=== PATIENT | female | born 1970 | race Caucasian/White ===

== ENCOUNTER 2018-05-27 08:35 | Emergency (ER) | payer OTHER ==
[~2018-05-27] VITALS: Ht 172.7 cm; Wt 110.7 kg
[~2018-05-27 08:35] MED LIST: AUGMENTIN 500-1 EACH PO; DIABETA 5MG TABL5 MG PO; IBUPROFEN 800800 M1 PO; LISINOPRIL5 MG PO; LORTAB 5-500 T1 EAC1 PO; METFORMIN HCL500 MG PO; ULTRAM 50MG TAB50 MG PO
[2018-05-27] MEDS ORDERED: CIPRODEX OTIC7.5 ML OTIC (09:27)
[2018-05-27] MEDS ORDERED: AUGMENTIN 875-1 EACH PO (09:27)
[2018-05-27 09:45] VITALS: BP 128/87
== END 2018-05-27 09:46 | disposition home or self-care (01) ==
LOC: M.ERS 08:35
DX: H60.91 Unspecified otitis externa, right ear (principal); H66.91 Otitis media, unspecified, right ear; E11.9 Type 2 diabetes mellitus without complications; I10 Essential (primary) hypertension; F17.210 Nicotine dependence, cigarettes, uncomplicated

== ENCOUNTER → 2019-07-14 | Outpatient (CLI) | payer OTHER ==
[~2019-07-14] MED LIST changes: +AUGMENTIN 875-1 EACH PO; +CIPRODEX OTIC7.5 ML OTIC
== END ==
LOC: M.RAD 09:15
DX: Z12.31 Encounter for screening mammogram for malignant neoplasm of breast (principal)

== ENCOUNTER → 2021-03-11 | Outpatient (CLI) | payer OTHER | LOC: M.RAD 09:29 | PROVIDERS: ATTEND Family Medicine | DX: N63.20 Unspecified lump in the left breast, unspecified quadrant (principal); N64.4 Mastodynia; R92.8 Other abnormal and inconclusive findings on diagnostic imaging of breast ==